=== PATIENT | female | born 1975 | race Hispanic/Latino ===

== ENCOUNTER 2019-11-30 21:01 | Emergency (ER) | payer SELFPAY ==
[~2019-11-30] VITALS: Ht 162.6 cm; Wt 90.7 kg
[~2019-11-30 21:01] MED LIST: BROMFED DM COU118 ML PO; CIPRO500 MG PO
--- NOTE | 2019-11-30 21:08 | Emergency Department Note ---
History of Present Illnes History of Present Illness History of Present Illness This is a 44 year old female 3 days ABARCA with n/v. Denies fevers or neck pain . [employer] Required: No Onset (how long ago): day(s) (3) Location: posterior head Radiation: Reports non-radiation Severity: moderate Onset quality: gradual Duration (how long): day(s) (3) Timing of current episode: constant Progression: worsening Chronicity: new Context: Denies recent illness, Denies recent surgery, Denies recent immobilization, Denies recent travel, Denies trauma/injury, Denies new medications, Denies hx of DVT/PE, Denies non-compliance w/ medications, Denies other Relieving factors: none Exacerbating factors: none Associated symptoms: Reports headaches, Reports nausea/vomiting Past Medical/Family History Physician Review I have reviewed the patient's past medical and family history. Any updates have been documented here. Past Medical History Recent Fever: No Clinical Suspicion of Infectio: No New/Unexplained Change in Ment: No Past Medical History: Migraines Past Surgical History: None Social History Smoking Cessation: Never Smoker Alcohol Use: None Any Illegal Drug Use: No Other Last Tetanus: UTD Review of Systems Review of Systems Constitutional: Denies fever EENTM: Reports no symptoms Cardiovascular: Reports no symptoms Respiratory: Reports no symptoms Gastrointestinal: Reports nausea, Reports vomiting Genitourinary: Reports no symptoms Musculoskeletal: Reports no symptoms Integumentary: Reports no symptoms Neurological: Reports headache Psychological: Reports no symptoms Endocrine: Reports no symptoms Hematological/Lymphatic: Reports no symptoms Physical Exam Related Data Allergies: Coded Allergies: No Known Allergies (Unverified , 12/20/10) Vital signs reviewed: Yes Physical Exam CONSTITUTIONAL Constitutional: Present well-developed, Present well-nourished HENT HENT: Present normocephalic, Present atraumatic, Present oropharynx clear/moist, Present nose normal HENT L/R: Present left ext ear normal, Present right ext ear normal EYES Eyes: Reports PERRL, Reports conjunctivae normal NECK Neck: Present ROM normal PULMONARY Pulmonary: Present effort normal, Present breath sounds normal CARDIOVASCULAR Cardiovascular: Present regular rhythm, Present heart sounds normal, Present capillary refill normal, Present normal rate GASTROINTESTINAL Abdominal: Present soft, Present nontender, Present bowel sounds normal GENITOURINARY Genitourinary: Present exam deferred SKIN Skin: Present warm, Present dry MUSCULOSKELETAL Musculoskeletal: Present ROM normal NEUROLOGICAL Neurological: Present alert, Present oriented x 3, Present no gross motor or sensory deficits PSYCHOLOGICAL Psychological: Present mood/affect normal, Present judgement normal Results Laboratory Lab results reviewed: Yes Imaging Imaging results reviewed: Yes Impressions [facility] [address] [address] Patient Name: CHINO BANDA MR #: [id number] : 1975 Age/Sex: 44/F Req #: [id number] Adm Physician: Ordered by: SAJI FRAUSTO DO Report #: [id number] Location: ER Room/Bed: Procedure: [id number] CT/CT BRAIN WO Exam Date: 11/30/19 Exam Time: 2154 REPORT STATUS: Signed History: Headache Comparison studies: None Technique: Axial images were obtained from the skull base to the vertex. Coronal and sagittal reconstructions obtained from the axial data. Dose modulation, iterative reconstruction, and/or weight based adjustment of the mA/kV was utilized to reduce the radiation dose to as low as reasonably achievable. Intravenous contrast: None Findings: Scalp/skull: No abnormalities. No fractures, blastic or lytic lesions. Extra-axial spaces: No masses. No fluid collections. Brain sulci: Appropriate for age. Ventricles: Normal in size and configuration. No hydrocephalus. Parenchyma: No abnormal densities. No masses, hemorrhage, acute or chronic cortical vascular insults. Sellar/suprasellar region: No abnormalities Craniocervical junction: Patent foramen magnum. No Chiari one malformation. Incidental findings: None. IMPRESSION: No abnormalities. Signed by: Dr. Anson Null M.D. on 11/30/2019 10:24 PM Dictated By: ANSON NULL MD, MD 23 Transcribed By: DAVID on 11/30/192223 COPY TO: SAJI FRAUSTO DO~ Assessment & Plan Medical Decision Making MDM 44 yof presents with neuro symptoms . Diff Dx : status epilepticus, brain tumor, CVA, SAH, EDH, traumatic brain injury , hydrocephalus, meningitis, encephalitis, COVID-19 infection Reassessment Reassessment time: 22:42 Reassessment Patient with moderate relief in pain but with persistant throbbing .Admission offered to the patient but politely declined. Assessment & Plan Final Impression: (1) Occipital headache Depart Disposition: HOME, SELF-custodial Meds Reported Medications D-Methorphan Hb/P-Epd Hcl/Bpm (BROMFED DM COUGH SYRUP) 118 Ml Syrup, PO TID 04/22/13 Ciprofloxacin Hcl (CIPRO) 500 Mg Tablet, 500 MG PO BID 04/22/13 SAJI FRAUSTO DO Nov 30, 2019 21:08
[2019-11-30] MEDS ORDERED: SODIUM CHLORIDE 0.9% 1000ML 1,000 ML IV STA (21:17)
[2019-11-30] MEDS ORDERED: KETOROLAC TROMETHAMINE 30 MG/ML VIAL IV STA (21:17)
[2019-11-30] MEDS ORDERED: METHYLPREDNISOLONE SOD SUCC 125 MG/2ML VIAL IV ONE (21:30)
[2019-11-30] MEDS ORDERED: METOCLOPRAMIDE HCL 10 MG/2ML VIAL IV ONE (21:30)
[2019-11-30] MEDS ORDERED: DIPHENHYDRAMINE HCL INJ 50 MG/ML VIAL IV ONE (21:30)
[2019-11-30 22:04] LABS: BASOPHILS # (AUTO) 0.1 (0.0-0.1); BASOPHILS % 0.8 % (0.0-1.0); EOSINOPHILS # (AUTO) 0.1 (0.0-0.4); EOSINOPHILS % 1.2 % (0.0-6.0); HEMATOCRIT 43.2 % (34.2-44.1); HEMOGLOBIN 15.6 g/dL (12.0-16.0); LYMPHOCYTES # (AUTO) 2.5 (1.0-3.2); LYMPHOCYTES % 38.7 % (18.0-39.1); MEAN CORPUSCULAR HEMOGLOBIN 30.4 pg (28-32); MEAN CORPUSCULAR HGB CONC 36.1 g/dL (31-35); MONOCYTES # (AUTO) 0.5 (0.2-0.8); NEUTROPHILS # (AUTO) 3.3 (2.1-6.9); PLATELET COUNT 272 x10e3/uL (140-360); RED BLOOD COUNT 5.14 x10e6/uL (3.6-5.1)
[2019-11-30 22:26] LABS: ALANINE AMINOTRANSFERASE 47 IU/L (0-55); ALBUMIN/GLOBULIN RATIO 1.2 (0.8-2.0); ALKALINE PHOSPHATASE 127 IU/L (40-150); AMPHETAMINES SCREEN,URINE NEGATIVE (NEGATIVE); ANION GAP 16.6 mmol/L (8-16); BENZODIAZEPINES SCREEN,URINE NEGATIVE (NEGATIVE); BLOOD UREA NITROGEN 13 mg/dL (7-26); BUN/CREATININE RATIO 18 (6-25); CALCIUM 9.1 mg/dL (8.4-10.2); CARBON DIOXIDE 22 mmol/L (22-29); CHLORIDE 99 mmol/L (98-107); CREATININE, SERUM 0.72 mg/dL (0.57-1.11); EST GLOMERULAR FILTRATION RATE > 60 ML/MIN (60-); GLUCOSE 302 mg/dL (74-118); PHENCYCLIDINE SCREEN,URINE NEGATIVE (NEGATIVE); POTASSIUM 3.6 mmol/L (3.5-5.1); PREGNANCY TEST, URINE NEGATIVE (NEGATIVE); SODIUM 134 mmol/L (136-145)
--- NOTE | 2019-11-30 22:27 | Diagnostic Imaging Report ---
History: Headache Comparison studies: None Technique: Axial images were obtained from the skull base to the vertex. Coronal and sagittal reconstructions obtained from the axial data. Dose modulation, iterative reconstruction, and/or weight based adjustment of the mA/kV was utilized to reduce the radiation dose to as low as reasonably achievable. Intravenous contrast: None Findings: Scalp/skull: No abnormalities. No fractures, blastic or lytic lesions. Extra-axial spaces: No masses. No fluid collections. Brain sulci: Appropriate for age. Ventricles: Normal in size and configuration. No hydrocephalus. Parenchyma: No abnormal densities. No masses, hemorrhage, acute or chronic cortical vascular insults. Sellar/suprasellar region: No abnormalities Craniocervical junction: Patent foramen magnum. No Chiari one malformation. Incidental findings: None. IMPRESSION: No abnormalities. Signed by: Dr. Anson Null M.D. on 11/30/2019 10:24 PM
[2019-11-30 23:22] VITALS: BP 125/88
--- NOTE | 2019-12-01 12:11 | NUR ---
ACCESSED CHART FOR [facility]. THEY HAD A QUESTIONS REGARDING PRESCRIPTION FOR FIORICET. CLARRIFIED AND RE-ORDERED PER DR. CROOK
== END 2019-11-30 23:20 | disposition home or self-care (01) ==
LOC: ER 21:27
DX: R51.9 Headache, unspecified (principal); R11.2 Nausea with vomiting, unspecified
CPT/HCPCS: 36415; 70450; 80053; 80307; 81025; 85025; 96374; 96375; 99283; J1200; J1885; J2765; J2930; J7030

== ENCOUNTER 2020-06-01 10:01 | Emergency (ER) | payer SELFPAY ==
[~2020-06-01] VITALS: Ht 162.6 cm; Wt 90.7 kg
[2020-06-01] MEDS ORDERED: KETOROLAC TROMETHAMINE 30 MG/ML VIAL IM ONE (10:38)
[2020-06-01] MEDS ORDERED: ACETAMINOPHEN 325 MG TAB PO ONE (10:45)
[2020-06-01] MEDS ORDERED: KETOROLAC TROMETHAMINE 60 MG/2 ML VIAL ONE (10:50)
[2020-06-01] MEDS ORDERED: ACETAMINOPHEN 325 MG TAB ONE (10:50)
[2020-06-01] MEDS ORDERED: ONDANSETRON ODT4 MG PO (11:39)
[2020-06-01 11:56] VITALS: BP 131/88
== END 2020-06-01 11:58 | disposition home or self-care (01) ==
LOC: ER 10:42
DX: U07.1 COVID-19 (principal); R50.9 Fever, unspecified; R53.1 Weakness; E11.9 Type 2 diabetes mellitus without complications
CPT/HCPCS: 99282; J1885